=== PATIENT | male | born 1925 | race Caucasian/White ===

== ENCOUNTER 2017-01-15 06:09 | Day surgery (SDC) | payer OTHER ==
[2017-01-09 19:54] LABS: BASOPHILS 0.2 %; BASOPHILS ABSOLUTE 0.01 10/3/uL (0.0-0.16); EOSINOPHILS 7.8 %; EOSINOPHILS ABSOLUTE 0.44 10/3/uL (0.0-0.53); HEMATOCRIT 37.5 % (40.0-51.0); HEMOGLOBIN 12.8 g/dL (13.6-17.8); IMMATURE GRANULOCYTES 0.2 %; IMMATURE GRANULOCYTES ABSOLUTE 0.01 10/3/uL (0.0-0.11); LYMPHOCYTES 49.5 %; MEAN CORPUS HGB CONC 34.1 g/dL (32.0-36.0); MEAN CORPUSCULAR HEMOGLOB 32.3 pg (26.0-34.0); MEAN CORPUSCULAR VOLUME 94.7 fL (80-100); MEAN PLATELET VOLUME 9.7 fL (9.2-13.0); MONOCYTES 9.5 %; MONOCYTES ABSOLUTE 0.54 10/3/uL (0.21-1.20); NEUTROPHILS 32.8 %; NEUTROPHILS ABSOLUTE 1.86 10/3/uL (2.02-8.40); PLATELET COUNT 173 10/3/uL (150-400); RED CELL COUNT 3.96 10/6/uL (4.7-6.1); WHITE BLOOD CELLS 5.7 10/3/uL (4.5-10.5)
[2017-01-09 19:57] LABS: MANUAL DIFF NO %
[2017-01-09 20:03] LABS: BUN (BLOOD UREA NITROGEN) 7 MG/DL (6-23); CALCIUM, SERUM 9.1 MG/DL (8.5-10.4); CHLORIDE, SERUM 99 MMOL/L (96-112); CO2 (CARBON DIOXIDE) 29 MMOL/L (24-34); GFR AFRICAN AMERICAN 103 ML/MIN (>=60); GFR NON AFRICAN AMERICAN 89 ML/MIN (>=60); GLUCOSE, SERUM 117 MG/DL (60-99); POTASSIUM, SERUM 5.5 MMOL/L (3.5-5.3); SODIUM, SERUM 136 MMOL/L (135-148)
--- NOTE | ~2017-01-15 | OP ---
Record Of Operation [facility] [address] [place]. [address] NAME: CHIKIS BARRETO SR : [birth year] STATUS : [facility]#: [id number] AGE: 89 ADM/REG DATE : 01/15/17 MR#: [id number] REPORT SERV DATE: 01/15/17 DICTATED BY: EVELYN JIMENEZ DATE: 01/15/17 REPORT STATUS : Draft TRANSCRIBED BY: MODL DATE: 01/15/17 DATE OF PROCEDURE: 01/15/2017 SERVICE: Otolaryngology. PREOPERATIVE DIAGNOSIS: Basal cell carcinoma of the right cheek. POSTOPERATIVE DIAGNOSIS: Basal cell carcinoma of the right cheek. PROCEDURE: 1. Wide local excision of right cheek basal cell carcinoma. 2. Complex layered closure. SURGEON: Evelyn Jimenez MD. [employer] INSTALLER HELPER: Bianca. ANESTHESIA: Monitored anesthesia care. COMPLICATIONS: None. SPECIMENS: 1. Wide local excision, right cheek. 2. Re-excision at 10 o'clock margin. FINDINGS: The patient had an advanced basal cell carcinoma of the right cheek. All margins were free, deep, and peripheral by frozen margin analysis at the end of the case. STATEMENT OF MEDICAL NECESSITY: This is an 89-year-old male, referred to me for nonhealing skin lesion on the face. Biopsy in the clinic did reveal basal cell carcinoma. I recommended the above procedure for full clearance of the tumor. STATEMENT OF OPERATION: The patient was brought to the operating room in supine position, transferred to the operating room table after monitored anesthesia care was established. The skin and subcutaneous tissue underneath the lesion on the right cheek right at the base of the lobule on the right side was infiltrated with 1% lidocaine with epinephrine. The patient was prepped and draped in the usual fashion. Using a #15C blade, an ellipse was taken out around the tumor to get at least 5 mm margins. This was removed, marked, and set aside for frozen analysis. In looking at the resultant wound, I did see an area at the 10 o'clock lesion that I was concerned about. I did another 3 mm re-excision of that area and marked the new 10 o'clock margin. This was sent to pathologist, Dr. Randhawa, he evaluated on fresh margins, and after re-excision, 10 o'clock was clear as it was originally positive on the first excision. The base of the wound was then cauterized with bipolar. The skin edges were undermined for 3 mm in all directions. The deep dermal layer was closed with 4-0 Vicryl sutures, followed by the skin layer with a running 5-0 fast absorbing gut suture. The patient tolerated the procedure well. He was transferred to the PACU in stable Record Of Operation [address] [address] NAME: CHIKIS BARRETO : [birth year] STATUS : [facility] PAT#: [id number] AGE: 89 ADM/REG DATE : 01/15/17 MR#: [id number] REPORT SERV DATE: 01/15/17 DICTATED BY: EVELYN JIMENEZ DATE: 01/15/17 REPORT STATUS : Draft TRANSCRIBED BY: PRIYANK DATE: 01/15/17 condition. PS/PRIYANK Evelyn Jimenez MD / [id number] CC: MD Matthieu Alberto M.D.
[~2017-01-15 06:09] MED LIST: ASAB PO; FLOMAX4 PO; LOP25 PO; MEVACOR PO
== END 2017-01-15 11:16 | disposition home or self-care (01) ==
LOC: SDC 06:09
PROVIDERS: Otolaryngology
PROC: 0JB10ZZ Excision of Face Subcutaneous Tissue and Fascia, Open Approach (ICD-10-PCS; 2017-01-15)
PROC: 0JQ10ZZ Repair Face Subcutaneous Tissue and Fascia, Open Approach (ICD-10-PCS; principal; 2017-01-15 07:15)
DX: C44.319 Basal cell carcinoma of skin of other parts of face (principal); I10 Essential (primary) hypertension; E78.00 Pure hypercholesterolemia, unspecified; I25.10 Atherosclerotic heart disease of native coronary artery without angina pectoris; Z95.5 Presence of coronary angioplasty implant and graft; Z95.1 Presence of aortocoronary bypass graft; Z86.73 Personal history of transient ischemic attack (TIA), and cerebral infarction without residual deficits; Z79.02 Long term (current) use of antithrombotics/antiplatelets; K21.9 Gastro-esophageal reflux disease without esophagitis; Z79.82 Long term (current) use of aspirin
CPT/HCPCS: 36415; 80048; 85025; 88305; 88331; 93005; A9270-GY; J0690; J3010